=== PATIENT | male | born 1935 | race Caucasian/White ===

== ENCOUNTER 2022-04-04 00:19 | Inpatient (IN) | payer MEDICARE, OTHER ==
[~2022-04-04] VITALS: Ht 180.3 cm; Wt 80.2 kg
[~2022-04-04 00:19] MED LIST: ALBU0.084 NEB; ALBUAER3 IN; APIX5TAB OR; ATOR20TA50 PO; BUME1TAB3 PO; CLOP75TA70 PO; COMIH INH; MAGN400T40 PO; METO-289 PO; MULT-902 OR; NITR0.4D5 TD; PERCOT PO; POLYSOL7 EACHEYE; POT10T PO; PRE5T PO; RANI150C11 PO; VER240ST PO
[2022-04-04 01:29] LABS: Basophils # (auto) 0.2 10 ^3/uL (0-0.2); Basophils % (auto) 1.9 % (0.0-2.0); Eosinophils # (auto) 0.1 10 ^3/uL (0-0.8); Eosinophils % (auto) 1.5 % (0.0-7.0); Hematocrit 33.5 % (41.0-53.0); Lymphocytes % (auto) 10.9 % (10.0-50.0); Mean Corpuscular Hemoglobin 29.3 pg (28.0-32.0); Mean Corpuscular Hgb Conc. 32.8 g/dL (32.0-36.0); Mean Corpuscular Volume 89.1 fL (80.0-100.0); Monocytes % (auto) 10.3 % (0.0-12.0); Neutrophils # (auto) 7.1 10 ^3/uL (1.6-8.6); Neutrophils % (auto) 75.4 % (37.0-80.0); Red Blood Cells 3.76 10^6/uL (4.5-5.90); Red Cell Distribution Width 14.6 % (11.8-14.3); White Blood Cell 9.5 10^3/uL (4.4-10.8)
[2022-04-04] MEDS ORDERED: OXYCODONE W/ ACETAMINOPHEN 5/325MG TABLET PO ONE (01:45)
[2022-04-04 01:48] LABS: Albumin 2.7 g/dL (3.4-5.0); BUN/Creatinine Ratio 41.4; Calcium 8.9 mg/dL (8.5-10.1); Potassium 4.3 mmol/L (3.5-5.1)
[2022-04-04 01:51] LABS: Bilirubin, Total 0.3 mg/dL (0.2-1.0); Total Protein 7.2 g/dL (6.4-8.2)
[2022-04-04 01:55] LABS: INR 1.1 (0.9-1.15)
[2022-04-04] MEDS ORDERED: ENOXAPARIN SOD 80 MG/0.8ML SYRINGE SC ONE (02:15)
[2022-04-04] MEDS ORDERED: IOHEXOL 350 MG/ML 100ML IJ ONE (03:18)
[2022-04-04 04:07] LABS: Urine Bacteria NONE SEEN /hpf (None Seen); Urine Blood Negative /uL (Negative); Urine Mucus FEW (None Seen); Urine Specific Gravity 1.027 (1.001-1.035); Urine WBC 9 /hpf (0 - 3)
[2022-04-04] MEDS ORDERED: ONDANSETRON HCL 4 MG/2 ML VIAL IV PRN (06:15)
[2022-04-04] MEDS ORDERED: MORPHINE SULFATE INJ 2 MG/ml SYRG IV PRN (06:15)
[2022-04-04] MEDS ORDERED: NITROGLYCERIN 0.4 MG SL TAB SL PRN (06:15)
[2022-04-04] MEDS ORDERED: ACETAMINOPHEN 325 MG TAB PO PRN (06:15)
[2022-04-04] MEDS: cefTRIAXone 1GM/50ML D5W 50 ML IV SCH (06:35)
[2022-04-04 07:01] VITALS: BP 139/67
[2022-04-04] MEDS: AZITHROMYCIN 500MG/ 250ML 250 ML IV SCH (07:06)
[2022-04-04] MEDS ORDERED: APIXABAN 5 MG TAB PO SCH (10:00)
[2022-04-04] MEDS: ASPirin 81 mg TAB PO SCH (10:14)
[2022-04-04] MEDS: VERAPAMIL HCL 120 mg ER tab PO SCH (10:15)
[2022-04-04] MEDS: METOPROLOL TARTRATE 50 MG TAB PO SCH ×2 (10:15→22:54)
[2022-04-04] MEDS: BUMETANIDE 1 MG TAB PO SCH (10:15)
[2022-04-04] MEDS: CLOPIDOGREL BISULFATE 75 MG TAB PO SCH (10:16)
[2022-04-04] MEDS: PANTOPRAZOLE 40 MG TAB PO SCH (10:16)
[2022-04-04] MEDS: ALBUTEROL SULF 2.5 MG/0.5ML(0.5%) NEB SOLN NEB PRN (11:32)
[2022-04-04 13:00] VITALS: BP 133/59
[2022-04-04] MEDS: ENOXAPARIN SOD 80 MG/0.8ML SYRINGE SC SCH (15:25)
[2022-04-04 16:28] VITALS: BP 116/57
[2022-04-04 22:00] VITALS: BP 137/69
[2022-04-04] MEDS: ATORVASTATIN 20 MG TAB PO SCH (22:53)
[2022-04-04] MEDS: HYDROcodone-ACET 7.5/325MG TAB PO PRN (23:33)
[2022-04-05] MEDS: ENOXAPARIN SOD 80 MG/0.8ML SYRINGE SC SCH ×2 (04:30→16:30)
[2022-04-05 05:00] VITALS: BP 135/62
[2022-04-05 05:25] LABS: Basophils # (auto) 0.1 10 ^3/uL (0-0.2); Basophils % (auto) 0.7 % (0.0-2.0); Eosinophils # (auto) 0.3 10 ^3/uL (0-0.8); Eosinophils % (auto) 3.9 % (0.0-7.0); Hematocrit 35.1 % (41.0-53.0); Hemoglobin 11.5 g/dL (13.5-17.5); Lymphocytes # (auto) 1.3 10 ^3/uL (0.4-5.4); Lymphocytes % (auto) 14.3 % (10.0-50.0); Mean Corpuscular Hemoglobin 29.1 pg (28.0-32.0); Mean Corpuscular Hgb Conc. 32.9 g/dL (32.0-36.0); Mean Corpuscular Volume 88.4 fL (80.0-100.0); Monocytes # (auto) 0.9 10 ^3/uL (0-1.3); Monocytes % (auto) 10.8 % (0.0-12.0); Neutrophils # (auto) 6.2 10 ^3/uL (1.6-8.6); Neutrophils % (auto) 70.3 % (37.0-80.0); Red Blood Cells 3.97 10^6/uL (4.5-5.90); Red Cell Distribution Width 14.6 % (11.8-14.3); White Blood Cell 8.8 10^3/uL (4.4-10.8)
[2022-04-05 05:52] LABS: INR 1.16 (0.9-1.15)
[2022-04-05 06:22] LABS: Albumin 2.4 g/dL (3.4-5.0); Calcium 8.8 mg/dL (8.5-10.1)
[2022-04-05 06:26] LABS: BUN/Creatinine Ratio 35.5; Bilirubin, Total 0.6 mg/dL (0.2-1.0); Total Protein 6.9 g/dL (6.4-8.2)
[2022-04-05 06:59] LABS: Magnesium 2.5 mg/dL (1.6-2.6)
[2022-04-05 09:00] VITALS: BP 146/63
[2022-04-05] MEDS: HYDROcodone-ACET 7.5/325MG TAB PO PRN ×2 (09:53→19:05)
[2022-04-05] MEDS: AZITHROMYCIN 500MG/ 250ML 250 ML IV SCH (09:54)
[2022-04-05] MEDS: cefTRIAXone 1GM/50ML D5W 50 ML IV SCH (09:54)
[2022-04-05] MEDS: ASPirin 81 mg TAB PO SCH (09:54)
[2022-04-05] MEDS: METOPROLOL TARTRATE 50 MG TAB PO SCH ×2 (09:55→22:02)
[2022-04-05] MEDS: PANTOPRAZOLE 40 MG TAB PO SCH (09:55)
[2022-04-05] MEDS: CLOPIDOGREL BISULFATE 75 MG TAB PO SCH (09:55)
[2022-04-05] MEDS: BUMETANIDE 1 MG TAB PO SCH ×2 (09:56→10:00)
[2022-04-05] MEDS: VERAPAMIL HCL 120 mg ER tab PO SCH (09:56)
[2022-04-05 13:00] VITALS: BP 128/55
[2022-04-05] MEDS ORDERED: ASPI-543 PO (15:50)
[2022-04-05] MEDS ORDERED: POLY33504 PO (15:54)
[2022-04-05] MEDS ORDERED: PANT40TA2 PO (15:54)
[2022-04-05 16:06] VITALS: BP 121/65
[2022-04-05 22:00] VITALS: BP 148/57
[2022-04-05] MEDS: ATORVASTATIN 20 MG TAB PO SCH (22:01)
[2022-04-06] MEDS: HYDROcodone-ACET 7.5/325MG TAB PO PRN ×3 (02:16→18:56)
[2022-04-06] MEDS: ENOXAPARIN SOD 80 MG/0.8ML SYRINGE SC SCH ×2 (02:57→18:56)
[2022-04-06 05:00] VITALS: BP 131/57
[2022-04-06 09:18] VITALS: BP 136/59
[2022-04-06] MEDS: BUMETANIDE 1 MG TAB PO SCH (10:00)
[2022-04-06] MEDS: AZITHROMYCIN 500MG/ 250ML 250 ML IV SCH (10:03)
[2022-04-06] MEDS: cefTRIAXone 1GM/50ML D5W 50 ML IV SCH (10:03)
[2022-04-06] MEDS: PANTOPRAZOLE 40 MG TAB PO SCH (10:04)
[2022-04-06] MEDS: CLOPIDOGREL BISULFATE 75 MG TAB PO SCH (10:04)
[2022-04-06] MEDS: ASPirin 81 mg TAB PO SCH (10:04)
[2022-04-06] MEDS: METOPROLOL TARTRATE 50 MG TAB PO SCH (10:05)
[2022-04-06] MEDS: VERAPAMIL HCL 120 mg ER tab PO SCH (10:05)
[2022-04-06] MEDS: ALBUTEROL SULF 2.5 MG/0.5ML(0.5%) NEB SOLN NEB PRN (10:47)
[2022-04-06] MEDS ORDERED: methylPREDNISolone SOD SUCC 40 MG/ML VL IV ONE (11:00)
[2022-04-06] MEDS ORDERED: BUME0.5T4 PO (11:01)
[2022-04-06] MEDS ORDERED: CARB0.5D8 EACHEYE (11:57)
[2022-04-06 12:47] VITALS: BP 126/59
[2022-04-06] MEDS ORDERED: IPRATROPIUM BROM 0.5 MG/2.5ML INH SOL NEB PRN (15:00)
[2022-04-06] MEDS: ALBUTEROL SULF 2.5 MG/0.5ML(0.5%) NEB SOLN NEB SCH ×2 (18:32→22:13)
[2022-04-06] MEDS: IPRATROPIUM BROM 0.5 MG/2.5ML INH SOL NEB SCH ×2 (18:32→22:13)
[2022-04-06] MEDS: ATORVASTATIN 20 MG TAB PO SCH (21:45)
[2022-04-06] MEDS: methylPREDNISolone SOD SUCC 40 MG/ML VL IV SCH (21:45)
[2022-04-06 22:00] VITALS: BP 133/55
[2022-04-07] VITALS (7 sets, daily range): BP systolic 125–136; BP diastolic 47–66
[2022-04-07] MEDS: IPRATROPIUM BROM 0.5 MG/2.5ML INH SOL NEB SCH ×5 (02:24→18:51)
[2022-04-07] MEDS: ENOXAPARIN SOD 80 MG/0.8ML SYRINGE SC SCH ×2 (03:26→17:45)
[2022-04-07] MEDS: HYDROcodone-ACET 7.5/325MG TAB PO PRN (03:54)
[2022-04-07 06:05] LABS: Basophils # (auto) 0 10 ^3/uL (0-0.2); Basophils % (auto) 0.1 % (0.0-2.0); Eosinophils # (auto) 0 10 ^3/uL (0-0.8); Hematocrit 33.3 % (41.0-53.0); Hemoglobin 11.1 g/dL (13.5-17.5); Lymphocytes # (auto) 0.6 10 ^3/uL (0.4-5.4); Mean Corpuscular Hemoglobin 29.3 pg (28.0-32.0); Mean Corpuscular Hgb Conc. 33.4 g/dL (32.0-36.0); Mean Corpuscular Volume 87.5 fL (80.0-100.0); Monocytes # (auto) 0.2 10 ^3/uL (0-1.3); Monocytes % (auto) 2.7 % (0.0-12.0); Neutrophils # (auto) 5.5 10 ^3/uL (1.6-8.6); Neutrophils % (auto) 87.2 % (37.0-80.0); Red Cell Distribution Width 14.4 % (11.8-14.3); White Blood Cell 6.3 10^3/uL (4.4-10.8)
[2022-04-07] MEDS: ALBUTEROL SULF 2.5 MG/0.5ML(0.5%) NEB SOLN NEB SCH ×4 (06:09→18:51)
[2022-04-07 06:22] LABS: BUN/Creatinine Ratio 37.5; Calcium 8.4 mg/dL (8.5-10.1); Magnesium 2.4 mg/dL (1.6-2.6); Potassium 3.9 mmol/L (3.5-5.1)
[2022-04-07] MEDS: cefTRIAXone 1GM/50ML D5W 50 ML IV SCH ×2 (09:24→11:50)
[2022-04-07] MEDS: methylPREDNISolone SOD SUCC 40 MG/ML VL IV SCH ×2 (09:24→21:27)
[2022-04-07] MEDS: AZITHROMYCIN 500MG/ 250ML 250 ML IV SCH ×2 (09:24→11:50)
[2022-04-07] MEDS: ASPirin 81 mg TAB PO SCH (09:25)
[2022-04-07] MEDS: BUMETANIDE 1 MG TAB PO SCH ×2 (09:26→09:37)
[2022-04-07] MEDS: PANTOPRAZOLE 40 MG TAB PO SCH (09:27)
[2022-04-07] MEDS: VERAPAMIL HCL 120 mg ER tab PO SCH (09:27)
[2022-04-07] MEDS: ATORVASTATIN 20 MG TAB PO SCH (21:28)
[2022-04-08] MEDS: IPRATROPIUM BROM 0.5 MG/2.5ML INH SOL NEB SCH ×7 (02:00→22:28)
[2022-04-08] MEDS: ENOXAPARIN SOD 80 MG/0.8ML SYRINGE SC SCH ×2 (03:58→15:29)
[2022-04-08 05:52] VITALS: BP 129/57
[2022-04-08] MEDS: ALBUTEROL SULF 2.5 MG/0.5ML(0.5%) NEB SOLN NEB SCH ×6 (06:00→22:28)
[2022-04-08 09:00] VITALS: BP 118/54
[2022-04-08] MEDS: ASPirin 81 mg TAB PO SCH (09:10)
[2022-04-08] MEDS: BUMETANIDE 1 MG TAB PO SCH (09:12)
[2022-04-08] MEDS: VERAPAMIL HCL 120 mg ER tab PO SCH (09:12)
[2022-04-08] MEDS: PANTOPRAZOLE 40 MG TAB PO SCH (09:13)
[2022-04-08] MEDS: methylPREDNISolone SOD SUCC 40 MG/ML VL IV SCH ×2 (09:13→22:00)
[2022-04-08] MEDS: cefTRIAXone 1GM/50ML D5W 50 ML IV SCH (09:13)
[2022-04-08] MEDS: AZITHROMYCIN 500MG/ 250ML 250 ML IV SCH (10:07)
[2022-04-08 13:00] VITALS: BP 118/56
[2022-04-08 17:00] VITALS: BP 129/57
[2022-04-08] MEDS: HYDROcodone-ACET 7.5/325MG TAB PO PRN (19:53)
[2022-04-08 22:00] VITALS: BP 128/62
[2022-04-08] MEDS: ATORVASTATIN 20 MG TAB PO SCH (22:00)
[2022-04-09 05:00] VITALS: BP 136/69
[2022-04-09 05:40] LABS: Magnesium 2.3 mg/dL (1.6-2.6)
[2022-04-09] MEDS: ENOXAPARIN SOD 80 MG/0.8ML SYRINGE SC SCH ×2 (05:43→16:18)
[2022-04-09] MEDS: ALBUTEROL SULF 2.5 MG/0.5ML(0.5%) NEB SOLN NEB SCH ×3 (06:34→14:02)
[2022-04-09] MEDS: IPRATROPIUM BROM 0.5 MG/2.5ML INH SOL NEB SCH ×3 (06:34→14:02)
[2022-04-09] MEDS: cefTRIAXone 1GM/50ML D5W 50 ML IV SCH (08:58)
[2022-04-09] MEDS: PANTOPRAZOLE 40 MG TAB PO SCH (08:58)
[2022-04-09] MEDS: ASPirin 81 mg TAB PO SCH (08:58)
[2022-04-09] MEDS: methylPREDNISolone SOD SUCC 40 MG/ML VL IV SCH (08:58)
[2022-04-09] MEDS: BUMETANIDE 1 MG TAB PO SCH (08:59)
[2022-04-09] MEDS: VERAPAMIL HCL 120 mg ER tab PO SCH (08:59)
[2022-04-09] MEDS: AZITHROMYCIN 500MG/ 250ML 250 ML IV SCH (10:07)
[2022-04-09] MEDS ORDERED: APIX5TAB4 PO (14:10)
[2022-04-09] MEDS ORDERED: PRED20TA2 PO (14:10)
[2022-04-09] MEDS ORDERED: DOXY-286 PO (14:10)
[2022-04-09 14:40] VITALS: BP 131/60
== END 2022-04-09 16:40 | disposition home health service (06) | DRG 193 ==
LOC: EDBD 00:19 → ER 00:19 → TELE 06:06 → TELE-WESTW 09:14
PROVIDERS: ADMIT Nurse Practitioner; ATTEND Internal Medicine
PROC: 5A09357 Assistance with Respiratory Ventilation, Less than 24 Consecutive Hours, Continuous Positive Airway Pressure (ICD-10-PCS; principal; 2022-04-06)
PROC: 5A09357 Assistance with Respiratory Ventilation, Less than 24 Consecutive Hours, Continuous Positive Airway Pressure (ICD-10-PCS; 2022-04-08)
PROC: 5A09357 Assistance with Respiratory Ventilation, Less than 24 Consecutive Hours, Continuous Positive Airway Pressure (ICD-10-PCS; 2022-04-09)
DX: J18.9 Pneumonia, unspecified organism (principal); J96.20 Acute and chronic respiratory failure, unspecified whether with hypoxia or hypercapnia; E43 Unspecified severe protein-calorie malnutrition; I82.433 Acute embolism and thrombosis of popliteal vein, bilateral; J44.1 Chronic obstructive pulmonary disease with (acute) exacerbation; D68.59 Other primary thrombophilia; J44.0 Chronic obstructive pulmonary disease with (acute) lower respiratory infection; N39.0 Urinary tract infection, site not specified; I50.42 Chronic combined systolic (congestive) and diastolic (congestive) heart failure; Z20.822 Contact with and (suspected) exposure to COVID-19; I49.5 Sick sinus syndrome; I48.0 Paroxysmal atrial fibrillation; E78.5 Hyperlipidemia, unspecified; F17.200 Nicotine dependence, unspecified, uncomplicated; G47.33 Obstructive sleep apnea (adult) (pediatric); I11.0 Hypertensive heart disease with heart failure; Z85.51 Personal history of malignant neoplasm of bladder; Z68.28 Body mass index [BMI] 28.0-28.9, adult; Z95.0 Presence of cardiac pacemaker; Z79.82 Long term (current) use of aspirin; Z88.8 Allergy status to other drugs, medicaments and biological substances
CPT/HCPCS: 36415; 71045; 71275; 80048; 80053; 80061; 81001; 82306; 83036; 83735; 83880; 84132; 84443; 84484; 85025; 85379; 85610; 85730; 87040; 87086; 93005; 93306; 93970; 94640; 94660; 96365; 96368; 96372; 97110; 97116; 97530; G0378; J0696; J2405